=== PATIENT | male | born 1945 | race Caucasian/White ===

== ENCOUNTER 2017-01-19 14:15 | Emergency (ER) | payer MEDICARE, OTHER ==
[~2017-01-19] VITALS: Ht 182.9 cm; Wt 100.5 kg
[2017-01-19 14:16] VITALS: TEMP 97.9
[2017-01-19] MEDS ORDERED: PROSCAR 5MG5 MG PO (14:34)
[2017-01-19] MEDS ORDERED: PROAIR HFA0.09 MG/AC (14:34)
[2017-01-19] MEDS ORDERED: ALTACE 5MG5 MG PO (14:34)
[2017-01-19] MEDS ORDERED: TOPROL XL 50MG50 MG PO (14:34)
[2017-01-19] MEDS ORDERED: COUMADIN 5MG5 MG/TAB PO (14:35)
[2017-01-19 14:44] LABS: BASO # 0.1 (0.0-0.2); BASO % 1.2 % (0.0-2.0); EOS # 0.2 (0.0-0.7); GRAN % 71.4 % (42.2-75.2); HEMATOCRIT 38.9 % (42.0-52.0); HEMOGLOBIN 12.9 g/dl (13.5-18.0); LYMPH % 12.3 % (20.0-51.0); MEAN CELL VOLUME 92 fl (80.0-100.0); MEAN CORPUSCULAR HEMOGLOBIN 30 pg (27.0-31.0); MEAN CORPUSCULAR HGB CONC 33 g/dl (33.0-37.0); MEAN PLATELET VOLUME 12.4 fl (7.4-10.4); MONO # 1.1 (0.1-0.6); MONO % 12.9 % (1.7-9.3); PLATELET COUNT 158 K/mm3 (130-400); RED BLOOD COUNT 4.25 M/mm3 (4.20-5.60); REDCELL DISTRIBUTION WIDTH-CV 14.7 % (11.5-14.5); WHITE BLOOD COUNT 8.5 K/mm3 (4.8-10.8)
[2017-01-19 14:47] LABS: INR 2.6 (0.8-3.0); PROTHROMBIN TIME 29.5 SECONDS (9.7-12.8)
[2017-01-19 14:50] LABS: PARTIAL THROMBOPLASTIN TIME 38.4 SECONDS (26.0-37.0)
[2017-01-19 14:52] LABS: ADJUSTED CALCIUM 9.4 mg/dL (8.4-10.2); ALBUMIN 4.1 gm/dL (3.5-5.0); BILIRUBIN,TOTAL 3.3 mg/dL (0.0-1.0); C-REACTIVE PROTEIN 1.5 mg/dL (0.0-0.9); CALCIUM 9.5 mg/dL (8.4-10.2); CREATININE, serum 1.1 mg/dL (0.66-1.25); POTASSIUM 4.2 mmol/L (3.4-5.0); TOTAL PROTEIN 7.1 gm/dL (6.4-8.2)
[2017-01-19 15:02] LABS: TROPONIN-I 0.016 ng/mL (0.000-0.034)
[2017-01-19 16:20] VITALS: BP 107/76; PULSE 80
== END 2017-01-19 16:20 | disposition home or self-care (01) ==
LOC: COL.ER 14:15
PROVIDERS: Family Medicine
DX: Z02.89 Encounter for other administrative examinations (principal)
CPT/HCPCS: J7030

== ENCOUNTER 2017-01-21 12:35 | Inpatient (IN) | payer MEDICARE, OTHER ==
[~2017-01-21] VITALS: Ht 182.9 cm; Wt 93.0 kg
[2017-01-21] VITALS (224 sets, daily range): BP systolic 120–127; BP diastolic 77–95; PULSE 98–126; TEMP 97.3–97.9; O2SAT 84–100
[~2017-01-21 12:35] MED LIST: ALTACE 5MG5 MG PO; COUMADIN 5MG5 MG/TAB PO; PROAIR HFA0.09 MG/AC; PROSCAR 5MG5 MG PO; TOPROL XL 50MG50 MG PO
[2017-01-21 12:56] LABS: BASO # 0.1 (0.0-0.2); BASO % 1.1 % (0.0-2.0); EOS # 0.1 (0.0-0.7); EOS % 1.4 % (0-4.0); GRAN # 5.5 (1.4-6.5); HEMATOCRIT 40.7 % (42.0-52.0); HEMOGLOBIN 13.4 g/dl (13.5-18.0); LYMPH # 1.2 (1.2-3.4); LYMPH % 14.4 % (20.0-51.0); MEAN CELL VOLUME 92 fl (80.0-100.0); MEAN CORPUSCULAR HEMOGLOBIN 30 pg (27.0-31.0); MEAN CORPUSCULAR HGB CONC 33 g/dl (33.0-37.0); MEAN PLATELET VOLUME 12.2 fl (7.4-10.4); MONO # 1.1 (0.1-0.6); MONO % 13.6 % (1.7-9.3); PLATELET COUNT 174 K/mm3 (130-400); RED BLOOD COUNT 4.44 M/mm3 (4.20-5.60); REDCELL DISTRIBUTION WIDTH-CV 14.9 % (11.5-14.5)
[2017-01-21 13:04] LABS: INR 2.9 (0.8-3.0)
[2017-01-21 13:07] LABS: PARTIAL THROMBOPLASTIN TIME 39.3 SECONDS (26.0-37.0)
[2017-01-21 13:10] LABS: ADJUSTED CALCIUM 9.5 mg/dL (8.4-10.2); ALANINE AMINOTRANSFERASE 41 U/L (21-72); ALBUMIN 4.2 gm/dL (3.5-5.0); ALKALINE PHOSPHATASE 92 U/L (50-136); ANION GAP 12 mmol/L (7-16); BILIRUBIN,TOTAL 3.2 mg/dL (0.0-1.0); BLOOD UREA NITROGEN 18 mg/dL (9-20); CALCIUM 9.7 mg/dL (8.4-10.2); CARBON DIOXIDE 23 mmol/L (22-30); CHLORIDE 104 mmol/L (98-107); CREATININE, serum 0.99 mg/dL (0.66-1.25); GLUCOSE 112 mg/dL (74-106); POTASSIUM 4.3 mmol/L (3.4-5.0); SODIUM 139 mmol/L (137-145); TOTAL PROTEIN 7.1 gm/dL (6.4-8.2)
[2017-01-21 13:23] LABS: TROPONIN-I < 0.012 ng/mL (0.000-0.034)
[2017-01-21 14:08] LABS: B-TYPE NATRIURETIC PEPTIDE 2160 pg/mL (0-125)
[2017-01-21] MEDS ORDERED: COUMADIN 22.5 MG/TAB PO (22:41)
[2017-01-22] VITALS (874 sets, daily range): BP systolic 94–123; BP diastolic 74–86; PULSE 95–135; TEMP 97.4–98.5; O2SAT 77–100
[2017-01-22 06:18] LABS: CALCIUM 9.1 mg/dL (8.4-10.2); CREATININE, serum 1.08 mg/dL (0.66-1.25); POTASSIUM 3.8 mmol/L (3.4-5.0)
[2017-01-22 21:55] LABS: ADJUSTED CALCIUM 9.5 mg/dL (8.4-10.2); ALBUMIN 4.2 gm/dL (3.5-5.0); BILIRUBIN,TOTAL 2.6 mg/dL (0.0-1.0); CALCIUM 9.7 mg/dL (8.4-10.2); CREATININE, serum 1.17 mg/dL (0.66-1.25); POTASSIUM 4.4 mmol/L (3.4-5.0); TOTAL PROTEIN 6.9 gm/dL (6.4-8.2)
[2017-01-23] VITALS (742 sets, daily range): BP systolic 96–120; BP diastolic 72–82; PULSE 93–113; TEMP 97.3–98; O2SAT 82–98
[2017-01-23 06:23] LABS: CALCIUM 9.4 mg/dL (8.4-10.2); CREATININE, serum 1.05 mg/dL (0.66-1.25); POTASSIUM 3.8 mmol/L (3.4-5.0)
[2017-01-23 21:39] LABS: ADJUSTED CALCIUM 9.3 mg/dL (8.4-10.2); ALBUMIN 4.2 gm/dL (3.5-5.0); BILIRUBIN,TOTAL 2.9 mg/dL (0.0-1.0); CALCIUM 9.5 mg/dL (8.4-10.2); CREATININE, serum 1.1 mg/dL (0.66-1.25); POTASSIUM 4.1 mmol/L (3.4-5.0); TOTAL PROTEIN 7.2 gm/dL (6.4-8.2)
[2017-01-24] VITALS (397 sets, daily range): BP systolic 100–127; BP diastolic 54–96; PULSE 50–110; TEMP 97.1–98.8; O2SAT 83–99
[2017-01-24 06:36] LABS: ADJUSTED CALCIUM 9.5 mg/dL (8.4-10.2); ALBUMIN 3.8 gm/dL (3.5-5.0); BILIRUBIN,TOTAL 3.1 mg/dL (0.0-1.0); CALCIUM 9.3 mg/dL (8.4-10.2); CREATININE, serum 1.05 mg/dL (0.66-1.25); POTASSIUM 3.9 mmol/L (3.4-5.0); TOTAL PROTEIN 6.7 gm/dL (6.4-8.2)
[2017-01-24 06:42] LABS: INR 2.3 (0.8-3.0)
[2017-01-24 07:43] LABS: DIGOXIN 0.9 ng/mL (0.8-2.0)
[2017-01-25 04:02] VITALS: BP 98/58; PULSE 87; TEMP 97.6
[2017-01-25 07:29] VITALS: BP 107/79; PULSE 105
[2017-01-25 11:08] VITALS: BP 96/54; PULSE 94; TEMP 97.6
[2017-01-25 16:12] VITALS: BP 93/57; PULSE 87; TEMP 97.1
[2017-01-25 20:02] VITALS: BP 111/74; PULSE 69; TEMP 97.9
[2017-01-25 23:08] VITALS: BP 112/70; PULSE 90; TEMP 97.4
[2017-01-25 23:13] LABS: ADJUSTED CALCIUM 9.8 mg/dL (8.4-10.2); BILIRUBIN,TOTAL 2.6 mg/dL (0.0-1.0); CALCIUM 9.8 mg/dL (8.4-10.2); CREATININE, serum 1.18 mg/dL (0.66-1.25); POTASSIUM 5.2 mmol/L (3.4-5.0); TOTAL PROTEIN 6.8 gm/dL (6.4-8.2)
[2017-01-26] VITALS (588 sets, daily range): BP systolic 101–139; BP diastolic 47–89; PULSE 47–119; TEMP 96.9–98.8; O2SAT 77–100
[2017-01-26 09:00] LABS: HEMATOCRIT 46.1 % (42.0-52.0); HEMOGLOBIN 15.4 g/dl (13.5-18.0); MEAN CELL VOLUME 91 fl (80.0-100.0); MEAN CORPUSCULAR HEMOGLOBIN 30 pg (27.0-31.0); MEAN CORPUSCULAR HGB CONC 33 g/dl (33.0-37.0); PLATELET COUNT 237 K/mm3 (130-400); RED BLOOD COUNT 5.08 M/mm3 (4.20-5.60); REDCELL DISTRIBUTION WIDTH-CV 14.4 % (11.5-14.5); WHITE BLOOD COUNT 8.7 K/mm3 (4.8-10.8)
[2017-01-26 09:03] LABS: INR 1.7 (0.8-3.0); PROTHROMBIN TIME 19.6 SECONDS (9.7-12.8)
[2017-01-26 09:06] LABS: PARTIAL THROMBOPLASTIN TIME 37.7 SECONDS (26.0-37.0)
[2017-01-26 09:10] LABS: CALCIUM 9.7 mg/dL (8.4-10.2); CREATININE, serum 1.07 mg/dL (0.66-1.25); POTASSIUM 4.7 mmol/L (3.4-5.0)
[2017-01-26 09:41] LABS: THYROID STIMULATING HORMONE 0.671 uIU/mL (0.465-4.680)
[2017-01-27] VITALS (234 sets, daily range): BP systolic 109–134; BP diastolic 49–78; PULSE 48–57; TEMP 97–98; O2SAT 83–100
[2017-01-27 05:49] LABS: HEMATOCRIT 40.5 % (42.0-52.0); MEAN CELL VOLUME 91 fl (80.0-100.0); MEAN CORPUSCULAR HEMOGLOBIN 30 pg (27.0-31.0); MEAN CORPUSCULAR HGB CONC 33 g/dl (33.0-37.0); MEAN PLATELET VOLUME 11.8 fl (7.4-10.4); PLATELET COUNT 201 K/mm3 (130-400); RED BLOOD COUNT 4.44 M/mm3 (4.20-5.60); REDCELL DISTRIBUTION WIDTH-CV 14.4 % (11.5-14.5); WHITE BLOOD COUNT 8.1 K/mm3 (4.8-10.8)
[2017-01-27 05:57] LABS: HEMOGLOBIN 13.3 g/dl (13.5-18.0)
[2017-01-27 06:00] LABS: INR 1.8 (0.8-3.0); PROTHROMBIN TIME 20.5 SECONDS (9.7-12.8)
[2017-01-27 06:07] LABS: CALCIUM 9.3 mg/dL (8.4-10.2); CREATININE, serum 1.12 mg/dL (0.66-1.25); POTASSIUM 4.7 mmol/L (3.4-5.0)
[2017-01-27] MEDS ORDERED: BETAPACE 120MG120 MG PO (10:24)
[2017-01-27] MEDS ORDERED: BRILINTA90 MG PO (10:24)
[2017-01-27] MEDS ORDERED: ASPIRIN E.C. 8181 MG PO (10:25)
[2017-01-27] MEDS ORDERED: TOPROL XL 25MG25 MG PO (10:28)
[2017-01-27] MEDS ORDERED: COUMADIN 22.5 MG/TAB PO (10:29)
[2017-01-27] MEDS ORDERED: LIPITOR 10MG10 MG PO (10:31)
[2017-01-27] MEDS ORDERED: LASIX 20MG TABL20 MG PO (10:32)
[2017-01-27] MEDS ORDERED: ALDACTONE 25MG25 M1 PO (10:56)
[2017-01-28] MEDS ORDERED: ALDACTONE 25MG25 M1 PO (09:16)
[2017-01-28] MEDS ORDERED: NORCO 325 MG-51 TAB PO (14:22)
== END 2017-01-27 12:15 | disposition home or self-care (01) | DRG 248 ==
LOC: COL.ER 12:35 → IMCU 13:20 → MEDICAL 01-24 16:55 → IMCU 01-26 10:10 → ICU 01-26 17:38 → IMCU 01-26 19:17
PROVIDERS: Family Medicine; Internal Medicine Cardiovascular Disease
PROC: B2111ZZ Fluoroscopy of Multiple Coronary Arteries using Low Osmolar Contrast (ICD-10-PCS; principal; 2017-01-26)
PROC: 02703DZ Dilation of Coronary Artery, One Artery with Intraluminal Device, Percutaneous Approach (ICD-10-PCS; 2017-01-26)
PROC: 4A033BC Measurement of Arterial Pressure, Coronary, Percutaneous Approach (ICD-10-PCS; 2017-01-26)
PROC: 5A2204Z Restoration of Cardiac Rhythm, Single (ICD-10-PCS; 2017-01-26)
DX: I48.2 Chronic atrial fibrillation (principal); I50.23 Acute on chronic systolic (congestive) heart failure; I50.1 Left ventricular failure, unspecified; I42.0 Dilated cardiomyopathy; I25.10 Atherosclerotic heart disease of native coronary artery without angina pectoris; J44.9 Chronic obstructive pulmonary disease, unspecified; I08.3 Combined rheumatic disorders of mitral, aortic and tricuspid valves; I65.02 Occlusion and stenosis of left vertebral artery
CPT/HCPCS: 99223-AI; 99232-AI; 99233-AI; 99239; A9502; C1760; C1876; C1887; J0153; J1644; J1650; J1940; J2250; J2785; J3010; J7030; J7050; Q9967

== ENCOUNTER 2017-01-27 20:39 | Emergency (ER) | payer MEDICARE, OTHER, BC ==
[~2017-01-27] VITALS: Ht 182.9 cm; Wt 90.0 kg
[~2017-01-27 20:39] MED LIST changes: +ALDACTONE 25MG25 M1 PO; +ASPIRIN E.C. 8181 MG PO; +BETAPACE 120MG120 MG PO; +BRILINTA90 MG PO; +COUMADIN 22.5 MG/TAB PO; +LASIX 20MG TABL20 MG PO; +LIPITOR 10MG10 MG PO; +TOPROL XL 25MG25 MG PO
[2017-01-27 20:42] VITALS: TEMP 97.5
[2017-01-27 22:43] VITALS: BP 105/62; PULSE 56
[2017-01-28] MEDS ORDERED: ALDACTONE 25MG25 M1 PO (09:16)
[2017-01-28] MEDS ORDERED: NORCO 325 MG-51 TAB PO (14:22)
== END 2017-01-27 22:41 | disposition home or self-care (01) ==
LOC: COL.ER 20:39
DX: I97.610 Postprocedural hemorrhage of a circulatory system organ or structure following a cardiac catheterization (principal); I42.2 Other hypertrophic cardiomyopathy; I25.10 Atherosclerotic heart disease of native coronary artery without angina pectoris; Z95.5 Presence of coronary angioplasty implant and graft; Z79.01 Long term (current) use of anticoagulants; I48.91 Unspecified atrial fibrillation

== ENCOUNTER 2017-01-28 08:14 | Emergency (ER) | payer MEDICARE, OTHER, BC ==
[~2017-01-28] VITALS: Ht 182.9 cm; Wt 90.0 kg
[2017-01-28 08:15] VITALS: TEMP 97.5
[2017-01-28 09:13] LABS: BASO # 0.1 (0.0-0.2); BASO % 1.1 % (0.0-2.0); EOS # 0.3 (0.0-0.7); EOS % 3.3 % (0-4.0); GRAN # 5.8 (1.4-6.5); GRAN % 69.2 % (42.2-75.2); HEMATOCRIT 40.5 % (42.0-52.0); HEMOGLOBIN 13.5 g/dl (13.5-18.0); LYMPH # 0.9 (1.2-3.4); MEAN CELL VOLUME 91 fl (80.0-100.0); MEAN CORPUSCULAR HEMOGLOBIN 30 pg (27.0-31.0); MEAN CORPUSCULAR HGB CONC 33 g/dl (33.0-37.0); MEAN PLATELET VOLUME 11.8 fl (7.4-10.4); MONO # 1.2 (0.1-0.6); MONO % 14.8 % (1.7-9.3); PLATELET COUNT 215 K/mm3 (130-400); RED BLOOD COUNT 4.45 M/mm3 (4.20-5.60); REDCELL DISTRIBUTION WIDTH-CV 14.3 % (11.5-14.5); WHITE BLOOD COUNT 8.4 K/mm3 (4.8-10.8)
[2017-01-28 09:14] LABS: INR 1.8 (0.8-3.0); PROTHROMBIN TIME 20.4 SECONDS (9.7-12.8)
[2017-01-28 09:16] LABS: PARTIAL THROMBOPLASTIN TIME 34.7 SECONDS (26.0-37.0)
[2017-01-28] MEDS ORDERED: ALDACTONE 25MG25 M1 PO (09:16)
[2017-01-28 09:26] LABS: CALCIUM 9.7 mg/dL (8.4-10.2); CREATININE, serum 1.06 mg/dL (0.66-1.25); POTASSIUM 4.6 mmol/L (3.4-5.0)
[2017-01-28] MEDS ORDERED: NORCO 325 MG-51 TAB PO (14:22)
[2017-01-28 14:30] VITALS: BP 114/70; PULSE 63
== END 2017-01-28 14:30 | disposition home or self-care (01) ==
LOC: COL.ER 08:14
PROVIDERS: Emergency Medicine
DX: I97.630 Postprocedural hematoma of a circulatory system organ or structure following a cardiac catheterization (principal); I25.10 Atherosclerotic heart disease of native coronary artery without angina pectoris; I11.0 Hypertensive heart disease with heart failure; I50.9 Heart failure, unspecified; Z95.5 Presence of coronary angioplasty implant and graft; I48.91 Unspecified atrial fibrillation; Z79.01 Long term (current) use of anticoagulants; Z79.82 Long term (current) use of aspirin
CPT/HCPCS: J3010

== ENCOUNTER 2017-02-16 13:54 | Day surgery (SDC) | payer MEDICARE, OTHER ==
[~2017-02-16] VITALS: Ht 182.9 cm; Wt 86.0 kg
[2017-02-16] VITALS (7 sets, daily range): BP systolic 78–100; BP diastolic 49–72; PULSE 62–123; TEMP 97.4
[~2017-02-16 13:54] MED LIST changes: +NORCO 325 MG-51 TAB PO
[2017-02-16 14:19] LABS: BASO # 0.1 (0.0-0.2); BASO % 0.8 % (0.0-2.0); EOS # 0.3 (0.0-0.7); EOS % 2.3 % (0-4.0); GRAN # 8.4 (1.4-6.5); GRAN % 71.2 % (42.2-75.2); HEMATOCRIT 42.3 % (42.0-52.0); HEMOGLOBIN 14.2 g/dl (13.5-18.0); LYMPH # 1.6 (1.2-3.4); LYMPH % 13.7 % (20.0-51.0); MEAN CELL VOLUME 90 fl (80.0-100.0); MEAN CORPUSCULAR HEMOGLOBIN 30 pg (27.0-31.0); MEAN CORPUSCULAR HGB CONC 34 g/dl (33.0-37.0); MEAN PLATELET VOLUME 11.4 fl (7.4-10.4); MONO # 1.4 (0.1-0.6); MONO % 11.7 % (1.7-9.3); PLATELET COUNT 278 K/mm3 (130-400); RED BLOOD COUNT 4.72 M/mm3 (4.20-5.60); REDCELL DISTRIBUTION WIDTH-CV 13.8 % (11.5-14.5); WHITE BLOOD COUNT 11.8 K/mm3 (4.8-10.8)
[2017-02-16 14:24] LABS: INR 2.3 (0.8-3.0)
[2017-02-16] MEDS ORDERED: LIPITOR 40MG TA40 MG PO (14:25)
[2017-02-16] MEDS ORDERED: COUMADIN 22.5 MG/TAB PO ×2 (14:29→15:17)
[2017-02-16] MEDS ORDERED: COUMADIN 5MG5 MG/TAB PO (14:30)
[2017-02-16 14:38] LABS: CALCIUM 9.6 mg/dL (8.4-10.2); CREATININE, serum 1.22 mg/dL (0.66-1.25); POTASSIUM 4.5 mmol/L (3.4-5.0)
[2017-02-16] MEDS ORDERED: CORDARONE200 MG/TAB PO (15:44)
== END 2017-02-16 16:37 | disposition home or self-care (01) ==
LOC: EUO 13:54
PROVIDERS: Internal Medicine Cardiovascular Disease
DX: I48.91 Unspecified atrial fibrillation (principal); I34.0 Nonrheumatic mitral (valve) insufficiency; Z79.82 Long term (current) use of aspirin; Z79.899 Other long term (current) drug therapy; Z79.01 Long term (current) use of anticoagulants
CPT/HCPCS: G9654; J2250; J2704

== ENCOUNTER 2017-05-08 14:58 | Outpatient (RCR) | payer MEDICARE, OTHER ==
[~2017-05-08 14:58] MED LIST changes: +CORDARONE200 MG/TAB PO; +LIPITOR 40MG TA40 MG PO
[2017-05-10] MEDS ORDERED: ASPIRIN 81M81 MG/TA2 PO (10:08)
[2017-05-10] MEDS ORDERED: CORDARONE200 MG/TAB PO (10:08)
[2017-05-10] MEDS ORDERED: TOPROL XL 25MG25 MG PO (10:08)
[2017-05-10] MEDS ORDERED: LIPITOR 40MG TA40 MG PO (10:09)
[2017-05-10] MEDS ORDERED: ALTACE 5MG5 MG PO (10:09)
[2017-05-10] MEDS ORDERED: PROSCAR 5MG5 MG PO (10:09)
[2017-05-10] MEDS ORDERED: COUMADIN 22.5 MG/TAB PO (10:10)
[2017-05-10] MEDS ORDERED: CIPRO 500MG TA500 MG PO (14:25)
[2017-05-10] MEDS ORDERED: NORCO 325 MG-51 TAB PO (14:25)
[2017-05-10] MEDS ORDERED: FLAGYL500 MG PO (14:25)
== END 2017-05-11 | disposition home or self-care (01) ==
LOC: COL.CR
DX: Z48.812 Encounter for surgical aftercare following surgery on the circulatory system (principal); I25.10 Atherosclerotic heart disease of native coronary artery without angina pectoris

== ENCOUNTER 2017-05-10 09:12 | Emergency (ER) | payer MEDICARE, OTHER ==
[~2017-05-10] VITALS: Ht 182.9 cm; Wt 87.3 kg
[2017-05-10 09:14] VITALS: BP 134/60; PULSE 53; TEMP 98.8
[2017-05-10] MEDS ORDERED: CORDARONE200 MG/TAB PO (10:08)
[2017-05-10] MEDS ORDERED: TOPROL XL 25MG25 MG PO (10:08)
[2017-05-10] MEDS ORDERED: ASPIRIN 81M81 MG/TA2 PO (10:08)
[2017-05-10] MEDS ORDERED: ALTACE 5MG5 MG PO (10:09)
[2017-05-10] MEDS ORDERED: PROSCAR 5MG5 MG PO (10:09)
[2017-05-10] MEDS ORDERED: LIPITOR 40MG TA40 MG PO (10:09)
[2017-05-10] MEDS ORDERED: COUMADIN 22.5 MG/TAB PO (10:10)
[2017-05-10 10:17] LABS: MEAN CELL VOLUME 91 fl (80.0-100.0); MEAN CORPUSCULAR HGB CONC 33 g/dl (33.0-37.0); MEAN PLATELET VOLUME 10.4 fl (7.4-10.4); PLATELET COUNT 278 K/mm3 (130-400); RED BLOOD COUNT 3.76 M/mm3 (4.20-5.60); REDCELL DISTRIBUTION WIDTH-CV 13.9 % (11.5-14.5); WHITE BLOOD COUNT 18.2 K/mm3 (4.8-10.8)
[2017-05-10 10:18] LABS: HEMATOCRIT 34.3 % (42.0-52.0); HEMOGLOBIN 11.3 g/dl (13.5-18.0); MEAN CORPUSCULAR HEMOGLOBIN 30 pg (27.0-31.0)
[2017-05-10 10:19] LABS: ADD PATHOLOGY DIFF REVIEW NO
[2017-05-10 10:20] LABS: INR 2.8 (0.8-3.0); PROTHROMBIN TIME 32.9 SECONDS (9.7-12.8)
[2017-05-10 10:31] LABS: BAND 8 % (0-10); BASOPHIL 1 % (0-2); EOSINOPHIL 2 % (0-4); METAMYELOCYTE 1 % (0-0); NEUTROPHILS 73 % (42.0-75.2); TOTAL CELLS COUNTED 100
[2017-05-10 10:33] LABS: HOWELL-JOLLY BODIES 1+
[2017-05-10 10:35] LABS: PLATELET ESTIMATE NORMAL (NORMAL)
[2017-05-10 11:14] LABS: ADJUSTED CALCIUM 9.4 mg/dL (8.4-10.2); ALBUMIN 4.1 gm/dL (3.5-5.0); BILIRUBIN,TOTAL 1.9 mg/dL (0.0-1.0); CALCIUM 9.5 mg/dL (8.4-10.2); CREATININE, serum 1.19 mg/dL (0.66-1.25); POTASSIUM 4.9 mmol/L (3.4-5.0); TOTAL PROTEIN 7.3 gm/dL (6.4-8.2)
[2017-05-10 11:41] LABS: PH 5 (5-8); SQUAMOUS EPITHELIAL None Seen /hpf; URINE APPEARANCE Hazy; URINE BACTERIA Rare /hpf; URINE BILIRUBIN Negative (NEGATIVE); URINE BLOOD Negative (NEGATIVE); URINE COLOR Yellow; URINE GLUCOSE Negative (NEGATIVE); URINE KETONE Negative (NEGATIVE); URINE RBC 0-2 /hpf; URINE UROBILINOGEN Negative (NEGATIVE); URINE WBC 0-2 /hpf
[2017-05-10] MEDS ORDERED: CIPRO 500MG TA500 MG PO (14:25)
[2017-05-10] MEDS ORDERED: FLAGYL500 MG PO (14:25)
[2017-05-10] MEDS ORDERED: NORCO 325 MG-51 TAB PO (14:25)
== END 2017-05-10 14:34 | disposition home or self-care (01) ==
LOC: COL.ER 09:12
PROVIDERS: Emergency Medicine; Nurse Practitioner
DX: R10.31 Right lower quadrant pain (principal); K63.9 Disease of intestine, unspecified; I48.91 Unspecified atrial fibrillation; I25.10 Atherosclerotic heart disease of native coronary artery without angina pectoris; Z95.5 Presence of coronary angioplasty implant and graft; Z79.01 Long term (current) use of anticoagulants; Z87.891 Personal history of nicotine dependence; I10 Essential (primary) hypertension; Z87.442 Personal history of urinary calculi; E78.5 Hyperlipidemia, unspecified
CPT/HCPCS: Q9967

== ENCOUNTER 2017-05-16 09:03 | Inpatient (IN) | payer MEDICARE, OTHER ==
[~2017-05-16] VITALS: Ht 182.9 cm; Wt 88.0 kg
[2017-05-16] VITALS (9 sets, daily range): BP systolic 110–145; BP diastolic 35–52; PULSE 36–46; TEMP 97–97.8
[~2017-05-16 09:03] MED LIST changes: +ASPIRIN 81M81 MG/TA2 PO; +CIPRO 500MG TA500 MG PO; +FLAGYL500 MG PO
[2017-05-16] MEDS ORDERED: ALDACTONE 25MG25 M1 PO (09:29)
[2017-05-17] VITALS (14 sets, daily range): BP systolic 89–145; BP diastolic 36–60; PULSE 38–55; TEMP 36.1–36.9
[2017-05-17 07:20] LABS: BASO # 0.1 (0.0-0.2); BASO % 1.2 % (0.0-2.0); EOS # 0.5 (0.0-0.7); EOS % 5.7 % (0-4.0); GRAN # 6.1 (1.4-6.5); GRAN % 67.1 % (42.2-75.2); LYMPH # 0.8 (1.2-3.4); LYMPH % 8.9 % (20.0-51.0); MEAN CELL VOLUME 93 fl (80.0-100.0); MEAN CORPUSCULAR HGB CONC 32 g/dl (33.0-37.0); MEAN PLATELET VOLUME 10.9 fl (7.4-10.4); MONO # 1.4 (0.1-0.6); MONO % 15.6 % (1.7-9.3); PLATELET COUNT 287 K/mm3 (130-400); RED BLOOD COUNT 3.48 M/mm3 (4.20-5.60); REDCELL DISTRIBUTION WIDTH-CV 14.1 % (11.5-14.5); WHITE BLOOD COUNT 9.1 K/mm3 (4.8-10.8)
[2017-05-17 07:26] LABS: HEMATOCRIT 32.5 % (42.0-52.0); HEMOGLOBIN 10.3 g/dl (13.5-18.0); MEAN CORPUSCULAR HEMOGLOBIN 30 pg (27.0-31.0)
[2017-05-17 07:32] LABS: CALCIUM 9.1 mg/dL (8.4-10.2); CREATININE, serum 1.07 mg/dL (0.66-1.25); POTASSIUM 4.4 mmol/L (3.4-5.0)
[2017-05-17 07:41] LABS: INR 2.2 (0.8-3.0); PROTHROMBIN TIME 25.3 SECONDS (9.7-12.8)
[2017-05-17 13:47] LABS: INR 1.9 (0.8-3.0); PROTHROMBIN TIME 21.8 SECONDS (9.7-12.8)
[2017-05-18 01:22] VITALS: BP 125/45; PULSE 45; TEMP 97.9
[2017-05-18 04:56] VITALS: BP 105/42; PULSE 67; TEMP 98.5
[2017-05-18 07:57] LABS: HEMATOCRIT 29.3 % (42.0-52.0); HEMOGLOBIN 9.5 g/dl (13.5-18.0)
[2017-05-18 08:14] LABS: INR 2.3 (0.8-3.0); PROTHROMBIN TIME 26.5 SECONDS (9.7-12.8)
[2017-05-18 08:16] LABS: CREATININE, serum 1.33 mg/dL (0.66-1.25); POTASSIUM 4.8 mmol/L (3.4-5.0)
[2017-05-18 10:30] VITALS: BP 126/32; PULSE 45; TEMP 97.6
[2017-05-18 14:45] VITALS: BP 102/38; PULSE 40; TEMP 97.7
[2017-05-18 17:20] LABS: HEMATOCRIT 29.6 % (42.0-52.0); HEMOGLOBIN 9.7 g/dl (13.5-18.0)
[2017-05-18 18:32] VITALS: BP 123/42; PULSE 41; TEMP 98.2
[2017-05-18 21:32] VITALS: BP 105/40; PULSE 107; TEMP 98.5
[2017-05-19 01:39] VITALS: BP 145/57; PULSE 61; TEMP 97.4
[2017-05-19 05:05] VITALS: BP 148/53; PULSE 41; TEMP 97.6
[2017-05-19 06:39] LABS: HEMOGLOBIN 9.2 g/dl (13.5-18.0)
[2017-05-19 06:44] LABS: CALCIUM 8.8 mg/dL (8.4-10.2); CREATININE, serum 1.2 mg/dL (0.66-1.25); POTASSIUM 4.6 mmol/L (3.4-5.0)
[2017-05-19 06:49] LABS: INR 1.6 (0.8-3.0); PROTHROMBIN TIME 17.8 SECONDS (9.7-12.8)
[2017-05-19 09:38] VITALS: BP 110/38; PULSE 45; TEMP 98.5
[2017-05-19 14:12] VITALS: BP 123/61; PULSE 46; TEMP 97.6
== END 2017-05-19 18:51 | disposition home or self-care (01) | DRG 331 ==
LOC: SDCO 09:03 → SURG 12:47 → SDCO 13:11 → SURG 05-19 18:51
PROVIDERS: Nurse Anesthetist, Certified Registered; Registered Nurse; Surgery
PROC: 0DBH8ZX Excision of Cecum, Via Natural or Artificial Opening Endoscopic, Diagnostic (ICD-10-PCS; 2017-05-16)
PROC: 0DBP8ZX Excision of Rectum, Via Natural or Artificial Opening Endoscopic, Diagnostic (ICD-10-PCS; 2017-05-16)
PROC: 8E0W4CZ Robotic Assisted Procedure of Trunk Region, Percutaneous Endoscopic Approach (ICD-10-PCS; 2017-05-17)
PROC: 0DTF4ZZ Resection of Right Large Intestine, Percutaneous Endoscopic Approach (ICD-10-PCS; principal; 2017-05-17 13:15)
DX: C18.0 Malignant neoplasm of cecum (principal); D12.8 Benign neoplasm of rectum; I48.2 Chronic atrial fibrillation; J44.9 Chronic obstructive pulmonary disease, unspecified; Z87.891 Personal history of nicotine dependence; Z79.01 Long term (current) use of anticoagulants; I25.5 Ischemic cardiomyopathy; I25.10 Atherosclerotic heart disease of native coronary artery without angina pectoris; Z95.5 Presence of coronary angioplasty implant and graft; I73.9 Peripheral vascular disease, unspecified; K57.30 Diverticulosis of large intestine without perforation or abscess without bleeding; D50.0 Iron deficiency anemia secondary to blood loss (chronic)
CPT/HCPCS: A4315; A9284; J0330; J0694; J1100; J1170; J1885; J2250; J2370; J2405; J2710; J3010; J7030; J7040; J7042; J7050; J7120

== ENCOUNTER 2018-07-18 07:32 | Day surgery (SDC) | payer MEDICARE, OTHER ==
[~2018-07-18] VITALS: Ht 152.4 cm; Wt 80.9 kg
[~2018-07-18 07:32] MED LIST changes: +ASPIRIN 32325 MG/TAB PO; -ASPIRIN 81M81 MG/TA2 PO; +CEPHALEXIN500 M1 PO; +XARELTO20 MG PO
[2018-07-18 07:56] VITALS: BP 144/80; PULSE 81
[2018-07-18 08:42] LABS: HEMOGLOBIN 12.7 g/dl (13.5-18.0); MEAN CELL VOLUME 95 fl (80.0-100.0); MEAN CORPUSCULAR HEMOGLOBIN 32 pg (27.0-31.0); MEAN CORPUSCULAR HGB CONC 33 g/dl (33.0-37.0); MEAN PLATELET VOLUME 11.2 fl (7.4-10.4); PLATELET COUNT 141 K/mm3 (130-400); RED BLOOD COUNT 4.02 M/mm3 (4.20-5.60); REDCELL DISTRIBUTION WIDTH-CV 14.1 % (11.5-14.5)
[2018-07-18 08:54] LABS: CALCIUM 8.9 mg/dL (8.4-10.2); CREATININE, serum 1.03 mg/dL (0.66-1.25); POTASSIUM 4.3 mmol/L (3.4-5.0)
[2018-07-18 08:55] LABS: INR 2.6 (0.8-3.0); PROTHROMBIN TIME 29.5 SECONDS (9.7-12.8)
== END 2018-07-18 10:55 | disposition home or self-care (01) ==
LOC: COL.CAR 07:32
PROVIDERS: Internal Medicine Cardiovascular Disease
DX: I48.0 Paroxysmal atrial fibrillation (principal); N40.0 Benign prostatic hyperplasia without lower urinary tract symptoms; J44.9 Chronic obstructive pulmonary disease, unspecified; I25.10 Atherosclerotic heart disease of native coronary artery without angina pectoris; I11.0 Hypertensive heart disease with heart failure; I50.9 Heart failure, unspecified; E78.5 Hyperlipidemia, unspecified; I42.2 Other hypertrophic cardiomyopathy; I34.0 Nonrheumatic mitral (valve) insufficiency; G43.909 Migraine, unspecified, not intractable, without status migrainosus; Z91.048 Other nonmedicinal substance allergy status; Z91.013 Allergy to seafood; Z95.0 Presence of cardiac pacemaker; Z87.891 Personal history of nicotine dependence; Z85.038 Personal history of other malignant neoplasm of large intestine
CPT/HCPCS: J1644; J2704

== ENCOUNTER 2019-12-12 13:46 | Day surgery (SDC) | payer MEDICARE, OTHER ==
[~2019-12-12] VITALS: Ht 182.9 cm; Wt 92.6 kg
[~2019-12-12 13:46] MED LIST changes: +BETAPACE 80MG80 MG PO; +TIKOSYN0.5 MG PO; +TOPROL XL100 MG PO
[2019-12-12 14:13] VITALS: BP 128/99; PULSE 140; TEMP 98.2
[2019-12-12 14:17] LABS: HEMATOCRIT 41.1 % (42.0-52.0); HEMOGLOBIN 13.2 g/dl (13.5-18.0); MEAN CELL VOLUME 92 fl (80.0-100.0); MEAN CORPUSCULAR HEMOGLOBIN 29 pg (27.0-31.0); MEAN CORPUSCULAR HGB CONC 32 g/dl (33.0-37.0); MEAN PLATELET VOLUME 11.3 fl (7.4-10.4); PLATELET COUNT 178 K/mm3 (130-400); RED BLOOD COUNT 4.49 M/mm3 (4.20-5.60); REDCELL DISTRIBUTION WIDTH-CV 14.3 % (11.5-14.5)
[2019-12-12 14:26] LABS: CALCIUM 9.2 mg/dL (8.4-10.2); CREATININE, serum 0.88 (0.66-1.25); MAGNESIUM 1.9 mg/dL (1.6-2.3); POTASSIUM 4.3 mmol/L (3.4-5.0)
[2019-12-12 14:28] LABS: PROTHROMBIN TIME 36.6 SECONDS (9.7-12.8)
[2019-12-12 14:56] LABS: THYROID STIMULATING HORMONE 0.727 uIU/mL (0.465-4.680)
[2019-12-12 15:45] VITALS: BP 105/69; PULSE 76
--- NOTE | 2019-12-12 15:45 | NUR ---
Pt resting comfortably after keo/cardioversion, sr on monitor. bs report from Sarah MESA. at bs.
[2019-12-12 16:00] VITALS: BP 109/73; PULSE 76
[2019-12-12 16:15] VITALS: BP 100/86; PULSE 79
[2019-12-12] MEDS ORDERED: TIKOSYN0.5 MG PO (16:18)
[2019-12-12 16:30] VITALS: BP 124/76; PULSE 73
--- NOTE | 2019-12-12 16:30 | NUR ---
Pt escorted to exit via wheelchair at this time by Sharita MESA. Pt has recovered well... DC,FU and RX instructions have been reviewed with pt who denies any questions at time of departure. Dr. Rivero has been at pt's bedside, has discussed his poc and f/u and answered his questions. Pt has been able to eat and drink without any problem. Sharita MESA dc'd pt's port and flushed with ns and heparin flush.
== END 2019-12-12 16:40 | disposition home or self-care (01) ==
LOC: COL.CAR 13:46
PROVIDERS: Internal Medicine Adult Congenital Heart Disease
DX: I48.20 Chronic atrial fibrillation, unspecified (principal); I08.1 Rheumatic disorders of both mitral and tricuspid valves; I42.9 Cardiomyopathy, unspecified; I25.10 Atherosclerotic heart disease of native coronary artery without angina pectoris; N40.0 Benign prostatic hyperplasia without lower urinary tract symptoms; J44.9 Chronic obstructive pulmonary disease, unspecified; J45.909 Unspecified asthma, uncomplicated; I73.9 Peripheral vascular disease, unspecified; I11.0 Hypertensive heart disease with heart failure; I50.9 Heart failure, unspecified; G43.909 Migraine, unspecified, not intractable, without status migrainosus; Z79.01 Long term (current) use of anticoagulants; Z80.0 Family history of malignant neoplasm of digestive organs; Z87.891 Personal history of nicotine dependence; Z90.49 Acquired absence of other specified parts of digestive tract; Z91.013 Allergy to seafood; Z86.73 Personal history of transient ischemic attack (TIA), and cerebral infarction without residual deficits; Z92.21 Personal history of antineoplastic chemotherapy
CPT/HCPCS: J1644; J2250; J2704

== ENCOUNTER → 2020-03-17 | Outpatient (CLI) | payer MEDICARE, OTHER | LOC: COL.RAD 10:39 | DX: C18.0 Malignant neoplasm of cecum (principal); R91.8 Other nonspecific abnormal finding of lung field | CPT/HCPCS: J1644; Q9967 ==

== ENCOUNTER → 2022-11-23 | Outpatient (CLI) | payer MEDICARE, OTHER | LOC: COL.RAD 08:02 | DX: Z08 Encounter for follow-up examination after completed treatment for malignant neoplasm (principal); R91.8 Other nonspecific abnormal finding of lung field; K57.30 Diverticulosis of large intestine without perforation or abscess without bleeding; Z85.038 Personal history of other malignant neoplasm of large intestine; Z95.0 Presence of cardiac pacemaker | CPT/HCPCS: Q9967 ==